=== PATIENT | female | born 1965 | race Caucasian/White ===

== ENCOUNTER → 2018-08-22 | Outpatient (CLI) | payer OTHER | LOC: CIMAGING 11:20 | PROVIDERS: ATTEND Family Medicine | DX: N20.0 Calculus of kidney (principal) | CPT/HCPCS: 74176-PO ==

== ENCOUNTER → 2018-12-09 | Outpatient (CLI) | payer OTHER | LOC: EMCIMAGING 10:39 | PROVIDERS: ATTEND Family Medicine | DX: Z12.31 Encounter for screening mammogram for malignant neoplasm of breast (principal) ==